=== PATIENT | male | born 1955 | race African-American/Black ===

== ENCOUNTER 2023-09-12 12:35 | Inpatient (IN) | payer MEDICARE, OTHER, SELFPAY ==
[2023-09-12] VITALS (29 sets, daily range): BP systolic 70–110; BP diastolic 51–79; PULSE 110; O2SAT 98
--- NOTE | 2023-09-12 09:42 | EDRN ---
lsat BP 70/55 (62), provider notified, this RN noticed that the pts Sp02 dipped to 88%, this RN placed the pt on 2L NC, Sp02 came up to 94%, provider notified
[2023-09-12 09:43] LABS: Mean Corp Hgb Conc. 34.1 g/dL (33.0-37.0); Mean Corpuscular Hgb 31.1 pg (27.0-31.0); Mean Corpuscular Volume 91.1 fL (80.0-94.0); Mean Platelet Volume 11.3 fL (7.4-10.4); Platelet Count 311 10^3/uL (130-400); Red Blood Cell Count 4.83 10^6/uL (4.70-6.10); Red Cell Dist. Width 15.6 % (11.5-14.5); White Blood Cell Count 9.1 10^3/uL (4.8-10.8)
[2023-09-12 09:55] LABS: COVID-19 Antigen Negative (Negative)
[2023-09-12 10:06] LABS: ALT (SGPT) 61 U/L (0-50); AST (SGOT) 129 U/L (17-59); Albumin 2.2 g/dl (3.5-5.0); Alkaline Phosphatase 64 U/L (38-126); Blood Urea Nitrogen 67 mg/dl (9-20); Calcium 5.8 mg/dl (8.4-10.2); Carbon Dioxide 17 mmol/L (22-30); Chloride 107 mmol/L (98-107); Estimated Creatinine Clearance 13 ml/min; Glucose 111 mg/dl (70-99); Potassium 2.8 mmol/L (3.5-5.1); Sodium 144 mmol/L (135-145); Total Bilirubin 0.6 mg/dl (0.2-1.3); eGFR 10.94
[2023-09-12 10:12] LABS: Urine Albumin Trace (Neg - Trace); Urine Bilirubin 1+ (Negative); Urine Character Clear (Clear); Urine Color Amber; Urine Glucose Negative (Negative); Urine Ketone Trace (Negative); Urine Leukocyte Trace (Negative); Urine Nitrite Positive (Negative); Urine Occult Blood Negative (Negative); Urine Urobilinogen 2+ (Neg - 1+)
[2023-09-12 10:14] LABS: Lactic Acid 5.1 mmol/L (0.7-2.0); Troponin I 0.261 ng/ml
[2023-09-12] MEDS: NSS 1500 IV (10:24)
--- NOTE | 2023-09-12 10:28 | ED.GENMED ---
History of Present Illness
General
Chief Complaint: Fainting/Passed Out
Source: patient, ambulance crew and halfway
Exam Limitations: none
Time Seen by Provider: 09/12/23 09:16
Nursing documentation reviewed up to this point in time: agreed with
Travel History
Have you had any contact with someone who has COVID-19?: No
Do you have any symptoms of coronavirus? Fever > 100 degrees, chills, cough, shortness of breath, sore throat, loss of taste or smell, muscle aches, or headache?: No
History of Present Illness
History of Present Illness:
68-year-old male with past medical history of hypertension hyperlipidemia dementia presenting to the emergency department today after he syncopized while on the toilet apparently staff was there with him and he did not sustain any significant
injury. He claims that he is been urinating normally and otherwise at this moment in time claims that he feels 'well'. He has no complaints at this time and denies any significant symptoms. He does claim that he has been urinating normally.
Past History
Past History
ED Past Medical History: GERD, HTN, Hypercholesterolemia and Psychiatric
ED Past Surgical History: None
Patient has exhibited threatening behavior?: No
PSI?: No
Social History
Tobacco: Former smoker
Alcohol: None
Drug: None
Living: halfway
Review of Systems
Review of Systems
Allergies reviewed?: Yes
All Other Systems: ROS reviewed and negative except as documented in HPI and ROS
Phy Exam
Physical Exam
Physical Exam:
GENERAL: Alert , in no apparent distress
EYE: pupils equal and reactive
NECK: Supple, no significant adenopathy.
ENT: o/p clr, mmm.
CARDIAC: Regular rate and rhythm .
LUNGS: Clear breath sounds bilaterally, no acute respiratory distress, no wheezes/rales/rhonchi
ABDOMEN: Soft, without focal tenderness, no r/g, no cvat
NEUROLOGICAL: Alert and oriented, no focal neuro deficits
SKIN: Warm and dry, skin intact.
MUSCULOSKELETAL: No edema, well perfused.
PSYCH: Answers questions with very short answers yes or no typically. Very flat affect
Course
Orders/Labs/Results
Orders:
Orders
09/12/23 09:15
Electrocardiogram (*1) Urgent
Reason for Study: Vertigo / Dizzy
09/12/23 09:16
EKG- Treatment ONCE
09/12/23 09:26
CT Head W/o Iv Contrast Urgent
Comment:
Reason For Exam: syncope
09/12/23 09:30
COVID-19 Antigen Urgent
Source: Nasal Swab
Complete Blood Count/With Diff Urgent
Comprehensive Metabolic Panel Urgent
Lactic Acid Urgent
Magnesium Urgent
Comment: ADD ON
Manual Differential Urgent
Troponin I Urgent
Influenza A+B Rapid Molecular Urgent
JORGE L Source: Nasal Swab
Specimen Description:
09/12/23 09:50
Urinalysis Reflex To Culture Urgent
Date Specimen was Collected: 09/12/23
Time Specimen was Collected: 09:47
Urine Microscopic Reflex Cult Urgent
Urine Culture Urgent
JORGE L Source: U
Specimen Description:
Date Specimen was Collected: 09/12/23
Time Specimen was Collected: 09:47
09/12/23 10:02
Blood Culture Urgent
JORGE L Source: Blood/Venous
Specimen Description:
09/12/23 10:20
Rosa Placement- Treatment ONCE
Reason for insertion: Acute Retention
09/12/23 10:22
0.9% Sodium Chloride 1000 ml [Nss] 1,500 ml IV BOLUS
09/12/23 10:48
Add On- LAB Urgent
Tests Added?: magnesium level
Calcium Gluconate 1 gram/100mL [Calcium Gluconate] 1 gram in 100 ml IV ONCE
Potassium Chloride [KCl] 20 meq PO NOW STA
09/12/23 10:54
CefTRIAXone [Rocephin] 2,000 mg IV NOW STA
09/12/23 12:30
Lactic Acid Urgent
Abnormal Lab Results
09/12/23 09/12/23
09:30 09:50
MCH 31.1 H pg
(27.0-31.0)
RDW 15.6 H %
(11.5-14.5)
MPV 11.3 H fL
(7.4-10.4)
Abs Neuts (Manual) 7.6 H 10^3/uL
(1.4-6.5)
Band Neutrophils 26 H %
(0-3)
Lymphocytes (Manual) 8 L %
(20-51)
Potassium 2.8 L mmol/L
(3.5-5.1)
Carbon Dioxide 17 L mmol/L
(22-30)
BUN 67 H mg/dl
(9-20)
Creatinine 5.3 H* mg/dL
(0.7-1.3)
Glucose 111 H mg/dl
(70-99)
Lactic Acid 5.1 H* mmol/L
(0.7-2.0)
Calcium 5.8 L* mg/dl
(8.4-10.2)
AST 129 H U/L
(17-59)
ALT 61 H U/L
(0-50)
Troponin I 0.261 H* ng/ml
Total Protein 5.0 L g/dl
(6.3-8.2)
Albumin 2.2 L g/dl
(3.5-5.0)
Urine Ketones Trace A
(Negative)
Urine Nitrite (Reflex) Positive A
(Negative)
Urine Bilirubin 1+ A
(Negative)
Urine Urobilinogen 2+ A
(Neg - 1+)
Leukocyte Esterase Rfl Trace A
(Negative)
Urine Bacteria (Reflex) Many A
(Negative)
09/12/23 09:30
09/12/23 09:30
Vital Signs
Initial and Last Documented VS:
Initial Vital Signs
Temp Pulse Resp BP Pulse Ox
98.5 F 115 16 75/52 96
09/12/23 09:16 09/12/23 09:16 09/12/23 09:16 09/12/23 09:16 09/12/23 09:16
Last Documented Vital Signs
Temp Pulse Resp BP Pulse Ox
98.5 F 101 16 101/51 97
09/12/23 09:16 09/12/23 11:15 09/12/23 09:16 09/12/23 11:15 09/12/23 11:04
MDM/Problems Addressed
MDM/Problems Addressed:
68-year-old male presenting to the emergency department after syncopal episode while in the toilet this morning at his nursing facility. Here initial blood pressure low in the 70s over 50s improving to the 90s over 70s after a liter of fluid.
Heart rate initially elevated but improving to normal rate. Labs showing creatinine level 5.3 which is new for the patient no previous renal failure. Potassium 2.8 calcium of 5.8 elevated lactic acid of 5.1. Troponin mildly elevated more likely
to be consistent with the renal dysfunction. Patient was unable to urinate here was given a Rosa catheter. Does have a previous history of urinary retention. CT scan negative urinalysis potentially consistent with UTI started on antibiotic.
Blood pressure and heart rate improving throughout ER stay after receiving fluids. Was given supplemental calcium and potassium.
*Critical Care Note
Total Time (30-74mins, 75-104mins- exclusive of procedures): Not Applicable
ED Attending Note
-
Portions of this chart may have been created with voice recognition software.� Occasional wrong word or��sound alike� substitutions may have occurred due to the inherent limitations of voice recognition software.
Discharge Plan
Departure
Patient Disposition: Admit
Date of Disposition: 09/12/23
Time of Disposition: 11:38
Admit to: IMU
Admit to doctor: Noe
Presentation/result/management discussed w/ accepting MD/DO: Hospitalist
Patient with high blood pressure during this ER visit?: No
Condition: Good
Covid-19: Not Applicable
Discharge Problem:
Renal failure, Hypocalcemia, Acute hypokalemia, Elevated troponin
Prescriptions:
No Action
acetaminophen 325 mg Tablet
650 mg PO Q4HPRN PRN (Reason: mild pain/temp>101)
rosuvastatin 20 mg Tablet
20 mg PO HS
omeprazole 20 mg Tablet,Delayed Release (Dr/Ec)
20 mg PO DAILY
magnesium hydroxide [Milk of Magnesia] 400 mg/5 mL Suspension
30 ml PO HSPRN PRN (Reason: if no bm x 3 days)
fluvoxamine 100 mg Tablet
100 mg PO HS
bisacodyl [Dulcolax (bisacodyl)] 10 mg Suppository
10 mg W[place] DAILYPRN PRN (Reason: IF NO BM AFTER MOM)
ipratropium-albuterol 0.5 mg-3 mg(2.5 mg base)/3 mL Solution For Nebulization
3 ml inhalation R Q4HPRN PRN (Reason: wheezing) Qty: 0 0RF
acetaminophen 325 mg Tablet
650 mg PO Q4HPRN PRN (Reason: mild pain/VILLALOBOS/temp> 100.4F) Qty: 0 0RF
tamsulosin [Flomax] 0.4 mg capsule
0.4 mg PO DAILY
aripiprazole 5 mg tablet
5 mg PO DAILY
Referrals:
Khadar Lou DO [Family Provider] -
Interventions
Interventions:
*Risk Screen - Suicide Last Done: 09/12/23 09:16
*General Assessment Last Done: 09/12/23 09:16
*Neglect/Abuse Screening Last Done: 09/12/23 09:16
ED- Fall Risk Assessment Last Done: 09/12/23 09:16
*ED COVID-19 Vaccine History Last Done: 09/12/23 09:16
ED- Cardiac Assessment Last Done: 09/12/23 09:16
ED- Neurological Assessment Last Done: 09/12/23 09:16
[2023-09-12 10:50] LABS: Urine Amorphous Seen; Urine Mucus Many; Urine Squamous Cell 0-2 /LPF (Few)
[2023-09-12 10:51] LABS: Urine Red Blood Cell 0-2 /HPF (0-2)
[2023-09-12 10:52] LABS: Urine Bacteria Many (Negative)
[2023-09-12] MEDS: CALCIUM GLUCONATE 100 IV (11:08)
[2023-09-12] MEDS: KCL 20 MEQ PO (11:08)
[2023-09-12] MEDS: ROCEPHIN 2000 MG IV (11:08)
[2023-09-12 11:14] LABS: Nucleated Red Blood Cells % 0.3 % (-)
[2023-09-12 11:17] LABS: Absolute Neutrophils -Man Diff 7.6 10^3/uL (1.4-6.5); Band Neutrophils 26 % (0-3); Eosinophils 1 % (0-6); Lymphocytes 8 % (20-51); Magnesium 1.8 mg/dl (1.6-2.3); Monocytes 7 % (2-9); Segmented Neutrophils 58 % (42-75)
[2023-09-12 11:19] LABS: Anisocytosis Slight; Macrocytosis Slight; Normal RBC Morphology No; Platelets Checked YES
[2023-09-12 11:21] LABS: Poikilocytosis Slight; Tear Drop Red Blood Cells FEW
[2023-09-12 11:22] LABS: Total Cells Counted 100
--- NOTE | 2023-09-12 11:39 | CM ---
Addendum entered by Pita Ibrahim 09/12/23 11:59:
Patient states that he did not want CM to call patient sister and that he understands that he will return to SNF when medically appropriate.
Original Note:
Patient from LTC; [facility] CM called to admissions to request confirmation of patient status and update on functional assessment.
--- NOTE | 2023-09-12 12:38 | HPS.HSE ---
Family Physician
-
Family Physician: Khadar Lou
Chief Complaint
-
Reported passing out on the toilet at his facility
History of Present Illness
Patient is a 68-year-old male who is a very poor historian, in fact says yes to any and all questions asked. As documented by ED physician apparently he syncopized on the toilet. He did not sustain any injury. He has a history of bipolar disorder
who was on a significant amount of medication that was weaned off his last admission. He also has a history of urinary retention especially on anticholinergic medications. Workup in the emergency department found him to be in acute renal failure
with hypocalcemia and hypokalemia and patient is being admitted.
Medical History
Past Medical History
Past Medical History: Reports Other
Additional Past Medical History:
Essential hypertension
History of urinary retention due to anticholinergic medications
Bipolar disorder/schizoaffective disorder
History of dementia with behavioral disturbances
History of insomnia
Gastroesophageal reflux disease
Hyperlipidemia
Blindness
Previous history of toxic metabolic encephalopathy secondary to influenza A with recent hospitalization from August 24 August 29, 2023
History of right hand fracture from fall in July 2023
Past Surgical History: Reports Other
Additional Past Surgical History:
Unknown
Social History
Tobacco: Former Smoker (Per previous documentation)
Alcohol: None
Drug: None
Living: Long Term
Family History
Family History: Unable to Obtain
Allergies / Home Medications
Allergies reflects when Allergies were last updated in [facility].
Home Medications with original date entered in [facility]
Allergy/Medication List:
Allergies
Allergy/AdvReac Type Severity Reaction Status Date / Time
Penicillins Allergy Unknown Unknown Verified 08/24/23 09:14
aspirin Allergy Unknown Verified 08/24/23 09:14
haloperidol [From Haldol] Allergy Pharmacy Verified 08/24/23 14:07
to Review
Home Medications
acetaminophen 325 mg tablet 650 mg PO Q4HPRN PRN mild pain/temp>101 03/11/23
omeprazole 20 mg tablet,delayed release 20 mg PO DAILY Gastrointestinal Issue 03/11/23
rosuvastatin 20 mg tablet 20 mg PO HS High Cholesterol 03/11/23
magnesium hydroxide 400 mg/5 mL oral suspension (Milk of Magnesia) 30 ml PO HSPRN PRN if no bm x 3 days 05/06/23
bisacodyl 10 mg rectal suppository (Dulcolax (bisacodyl)) 10 mg MT DAILYPRN PRN IF NO BM AFTER MOM 08/24/23
fluvoxamine 100 mg tablet 100 mg PO HS bipolar disorder 08/24/23
acetaminophen 325 mg tablet 650 mg PO Q4HPRN PRN mild pain/VILLALOBOS/temp> 100.4F #0 tabs 08/29/23
ipratropium 0.5 mg-albuterol 3 mg (2.5 mg base)/3 mL nebulization soln 3 ml inhalation R Q4HPRN PRN wheezing #0 mL 08/29/23
aripiprazole 5 mg tablet 5 mg PO DAILY bipolar disorder 09/12/23
tamsulosin 0.4 mg capsule (Flomax) 0.4 mg PO DAILY Urinary Issue 09/12/23
Review of Systems
-
Unable to obtain full review of systems at this time due to: Dementia (Patient answers yes to any and all questions asked)
Physical Exam
Vital Signs
Vital Signs
Temp Pulse Resp BP Pulse Ox
98.5 F 101 16 101/51 97
09/12/23 09:16 09/12/23 11:15 09/12/23 09:16 09/12/23 11:15 09/12/23 11:04
Physical Exam
General: Well Developed, No Apparent Distress and Appears Chronically Ill
HEENT: NormoCephalic, Anicteric and Oxygen
Respiratory: Clear; No Wheezes, Rales, Rhonchi or Crackles
Cardiac: S1/S2 and Regular Rhythm; No Murmur
GI: Soft, Non Tender, Non Distended and Normal Bowel Sounds
Genito-urinary: Rosa (Placed on admission)
Musculoskeletal: No Clubbing, No Cyanosis and No Edema
Skin: Warm
Neuro: Awake and Alert
Psych: Calm
Laboratory Results
-
09/12/23:
09/12/23
Laboratory Results
Lactic Acid 5.1 mmol/L (0.7-2.0) H* 09/12/23
Total Bilirubin 0.6 mg/dl (0.2-1.3) 09/12/23
AST 129 U/L (17-59) H 09/12/23
ALT 61 U/L (0-50) H 09/12/23
Alkaline Phosphatase 64 U/L (38-126) 09/12/23
Troponin I 0.261 ng/ml H* 09/12/23:30
Impression/Plan
-
Patient is a 68-year-old male
Syncope--unclear cause however, may be due to the acute kidney injury and/or urinary tract infection--ADMIT--continue IV fluids--consult PT/OT
Acute kidney injury with lactic acidosis--possibly due to urinary retention--consult nephrology--Rosa catheter placed, patient had approximately 400 to 500 mL in bladder with residual of 250 mL noted after 125 mL of voluntary voiding--continue IV
fluids--ADMIT--hold nephrotoxic medications--trend lactates--urinalysis appears to be positive, sent for culture--will start antibiotics while waiting
Hypocalcemia/hypokalemia--replete as needed, follow
Troponin elevation--likely not myocardial infarction elevation--trend
Bipolar disorder with history of schizoaffective disorder and dementia with behavioral disturbances--patient was seen in consultation by psychiatry last admission--currently he is calm and cooperative--continue aripiprazole and fluoxetine as
able--consideration for repeat psychiatry evaluation if needed
History of urinary retention--continue Flomax, Rosa catheter as above
Essential hypertension--does not appear to be on any blood pressure medications
Hyperlipidemia--continue Crestor
DVT prophylaxis--subcu heparin
CODE STATUS--full code
[2023-09-12] MEDS: KCL 270 MEQ IV (12:46)
[2023-09-12 13:07] LABS: Lactic Acid 1.8 mmol/L (0.7-2.0)
--- NOTE | 2023-09-12 13:35 | CON.MD ---
Consultation - Medical
-
IMP:
Syncope
Hypotension
Acute kidney injury
A gap met acidosis
lactic acidosis
Hypocalcemia
hypokalemia
Troponin elevation--likely not myocardial infarction elevation
Bipolar disorder with history of schizoaffective disorder
Dementia with behavioral disturbances
History of urinary retention-- Flomax
Essential hypertension not on meds
Hyperlipidemia
Hypoalbuminemia
elevated LFTs
Blindness
PLan:
A/w syncope found hypotensive and ADRIAN
ADRIAN -possible prerenal, h/o U retention but not much urine from harvey
UA relatively bland, check Fena , renal US
BP are now improving with IVF -start isotonic fluids
if met acidosis worsens change to bicarb
severe hypokalemia-not seem to be on diuretics
cont replace as needed, follow level later
L acidosis seem type A-improved now
hypocalcemia-s/p IV rider,corrected c7.2 check I samy later today
check vit D and pTH level
labs later today
[id number]
[2023-09-12] MEDS: NSS 1000 IV (17:01)
[2023-09-12 18:22] LABS: Blood Urea Nitrogen 91 mg/dl (9-20); Carbon Dioxide 20 mmol/L (22-30); Chloride 100 mmol/L (98-107); Glucose 124 mg/dl (70-99); Sodium 139 mmol/L (135-145)
[2023-09-12 18:36] LABS: Estimated Creatinine Clearance 9 ml/min
[2023-09-12 21:29] LABS: Urine Albumin 1+ (Neg - Trace); Urine Bilirubin 1+ (Negative); Urine Character Clear (Clear); Urine Color Amber; Urine Glucose Negative (Negative); Urine Ketone Trace (Negative); Urine Leukocyte Trace (Negative); Urine Nitrite Positive (Negative); Urine Occult Blood 1+ (Negative); Urine Specific Gravity 1.025 (<1.030); Urine Urobilinogen 1+ (Neg - 1+)
[2023-09-12 21:38] LABS: Urine Squamous Cell 0-2 /LPF (Few)
[2023-09-12 21:39] LABS: Urine Bacteria Moderate (Negative)
[2023-09-12] MEDS: ZOFRAN 4 MG IV (21:50)
[2023-09-12] MEDS: HEPARIN 5000 UNITS SC (21:50)
[2023-09-12 21:54] LABS: Urine Protein 159 mg/dl
[2023-09-12] MEDS: LUVOX 100 MG PO (21:55)
[2023-09-12] MEDS: CRESTOR 10 MG PO (21:55)
[2023-09-12 22:41] LABS: Protein/creatinine Ratio 0.5; Urine Sodium 36 mmol/L (30-90)
[2023-09-13] MEDS: NSS 1000 IV (02:36)
[2023-09-13 03:55] VITALS: BP 105/67
[2023-09-13 05:31] LABS: Ionized Calcium 0.84 mMOL/L (1.15-1.33)
[2023-09-13] MEDS: MILK OF MAGNESIA 30 ML PO (05:31)
[2023-09-13] MEDS: FLOMAX 0.400000000000000022 MG PO ×2 (05:31→12:55)
--- NOTE | 2023-09-13 05:39 | PTCARENOTE ---
Pt w/ low urine output in harvey and abd distended. Pt bladder scanned for >250. Catheter balloon deflated, harvey advanced w/ no urine output noted. Balloon reinflated. Pt w/ no c/o pain. HOSPITALITY RECRUITER Catalino notified, harvey irrigation ordered. Harvey
irrigated w/ 100mls of sterile saline. 50 mls of cloudy yellow urine out. some resistance w/ irrigation. Pt irrigated again w/ 100mls. Able to get out 100mls that were instilled, no urine present in syringe. HOSPITALITY RECRUITER notified pt still w/ 250 mls in
bladder. HOSPITALITY RECRUITER instructed to replace harvey. 16f harvey placed w/ small flash of urine. Able to inflate the balloon w/o c/o pain from pt. HOSPITALITY RECRUITER notified, instructed to irrigate. Irrigated harvey w/ 100mls, resistance w/ irrigation. Only able to get out
50mls. HOSPITALITY RECRUITER notified about resistance w/ irrigation. HOSPITALITY RECRUITER stated nephro was notified. HOSPITALITY RECRUITER up to see pt. Instructed to give Flomax 0.4mg early and to give PRN milk of mag. Abdomen distended, +BS, pt w/ no c/o pain. Will continue plan of care.
[2023-09-13 05:43] LABS: Hematocrit 37.9 % (39.0-52.0); Hemoglobin 13.6 g/dL (13.0-18.0); Mean Corp Hgb Conc. 35.9 g/dL (33.0-37.0); Mean Corpuscular Hgb 31.3 pg (27.0-31.0); Mean Corpuscular Volume 87.1 fL (80.0-94.0); Mean Platelet Volume 11.6 fL (7.4-10.4); Platelet Count 260 10^3/uL (130-400); Red Blood Cell Count 4.35 10^6/uL (4.70-6.10); Red Cell Dist. Width 15.2 % (11.5-14.5); White Blood Cell Count 3.7 10^3/uL (4.8-10.8)
[2023-09-13 05:51] LABS: ALT (SGPT) 289 U/L (0-50); Albumin 3.1 g/dl (3.5-5.0); Alkaline Phosphatase 114 U/L (38-126); Blood Urea Nitrogen 105 mg/dl (9-20); Calcium 7.6 mg/dl (8.4-10.2); Carbon Dioxide 18 mmol/L (22-30); Chloride 100 mmol/L (98-107); Glucose 91 mg/dl (70-99); Magnesium 2.3 mg/dl (1.6-2.3); Potassium 5.4 mmol/L (3.5-5.1); Sodium 137 mmol/L (135-145); Total Bilirubin 0.8 mg/dl (0.2-1.3); Total Protein 6.5 g/dl (6.3-8.2)
[2023-09-13 05:56] LABS: AST (SGOT) 768 U/L (17-59); Estimated Creatinine Clearance 8 ml/min; eGFR 6.58
[2023-09-13 06:00] VITALS: BMI 20.2
[2023-09-13 06:21] LABS: Vitamin D, 25-OH*** < 12.8 ng/mL (30-80)
--- NOTE | 2023-09-13 06:21 | W.PN.UPDATE ---
Update Note
Progress Note Update
Patient was seen as RN notified this [employer] MERCHANDISER of no urinary output, Bladder scan 250 CC. Abdomen noted to be distended, mildly firm at the time, non tender, + BS 4qadrant. unsure when was patients last BM. RN states patient was not distended in the early
shift. Patient states the same, denies any pain or discomfort. IV fluids in place. Advised RN to give MOM, also to give Flomax AM. AST ALT elevated at this time. will order US Abdomen.
[2023-09-13] MEDS: FLOMAX PO (06:36)
[2023-09-13 08:19] VITALS: BP 113/69
--- NOTE | 2023-09-13 09:43 | W.PN.NEPH.PH ---
Today's Communication / Plan
-
see plan
Assessment/Plan
-
IMP:
Syncope
Hypotension
Acute kidney injury
A gap met acidosis
lactic acidosis
Hypocalcemia
hypokalemia
Troponin elevation--likely not myocardial infarction elevation
Bipolar disorder with history of schizoaffective disorder
Dementia with behavioral disturbances
History of urinary retention-- Flomax
Essential hypertension not on meds
Hyperlipidemia
Hypoalbuminemia
elevated LFTs
Blindness
PLan:
A/w syncope found hypotensive and ADRIAN
ADRIAN - h/o U retention but not much urine from harvey
UA microhematuria-harvey sample, U na low highly suspect ATN, pending renal US
cr cont to rise 8.1 with minimal UOP
mild hyperkalemia -will give Lokelma
BP are stable with IVF -lower rate and change to bicarb IVF for met acidosis
cont to hold diuretics
hypocalcemia better, vit D def -start ergo
LFTs are increasing as well
spoke to the pt refused HD and knows the lethality of no NETWORK SUPPORT ADMINISTRATOR
spoke with sister Melissa on phone in detail and explained to her that with his underlying mood disorder we might encounter problem in dialysis
Also placement will be big issues being blind, schizoaffective disorder, he is no longer independant at this time
she will come and discuss with pt
d/w nursing
-
-
Date of Service: September 13, 2023
CC / HPI / ROS
-
Chief Complaint:
ADRIAN
History of Present Illness:
cr up at 8.1, bicarb 18, k high 5.4
BP sable, no fever
LFTs increasing
Review of Systems:
no UOP in harvey
no cp or sob
Labs
-
Labs:
eGFR 6.58 09/13/23 05:13
eGFR Cancelled 09/13/23 05:13
Albumin 3.1 g/dl (3.5-5.0) L 09/13/23 05:13
Albumin Cancelled 09/13/23 05:13
Physical Exam
-
Vital Signs:
Vital Signs
Temp Pulse Resp BP Pulse Ox
98.4 F 114 19 113/69 96
09/13/23 08:19 09/13/23 08:19 09/13/23 08:19 09/13/23 08:19 09/13/23 08:19
Cardiovascular:: Regular rate and rhythm
Respiratory:: Bilateral: CTA
Lung Excursion:: Normal
Abdomen:: Distended, Nontender and Soft
Extremity Edema:: None: Bilateral:
Harvey Catheter: Yes
[2023-09-13 11:18] VITALS: BP 102/64
[2023-09-13 11:33] LABS: Hematocrit 36.5 % (39.0-52.0); Hemoglobin 12.9 g/dL (13.0-18.0); Mean Corp Hgb Conc. 35.3 g/dL (33.0-37.0); Mean Corpuscular Volume 87.7 fL (80.0-94.0); Mean Platelet Volume 11.4 fL (7.4-10.4); Platelet Count 263 10^3/uL (130-400); Red Blood Cell Count 4.16 10^6/uL (4.70-6.10); Red Cell Dist. Width 15.8 % (11.5-14.5); White Blood Cell Count 4.5 10^3/uL (4.8-10.8)
--- NOTE | 2023-09-13 11:36 | CM ---
Addendum entered by Pita Ibrahim 09/13/23 15:53:
vm left for patient sister requesting call back to review discharge options.
Original Note:
Patient seen at bedside with physician. CM plan to call patient sister with physician to review options. Patient is LTC at [facility]. CM will continue to follow for discharge planning needs.
Plan; return to SNF
[2023-09-13 11:53] LABS: Blood Urea Nitrogen 114 mg/dl (9-20); Calcium 7.5 mg/dl (8.4-10.2); Carbon Dioxide 15 mmol/L (22-30); Chloride 98 mmol/L (98-107); Glucose 85 mg/dl (70-99); Potassium 5.2 mmol/L (3.5-5.1); Sodium 137 mmol/L (135-145)
--- NOTE | 2023-09-13 12:15 | W.PN.HOSP.TC ---
Today's Communication/Plan
-
await final decisions re: HD
Assessment / Plan
Assessment / Plan
pt is a 68 year old male
Syncope--unclear cause however, may be due to the acute kidney injury and/or urinary tract infection ( pt now with fever)--continue IV fluids--PT/OT
Acute kidney injury (with lactic acidosis resolved)--creat worsening possibly due to urinary retention--apprec nephrology--Rosa catheter placed, patient had approximately 400 to 500 mL in bladder with residual of 250 mL noted after 125 mL of
voluntary voiding--continue IV fluids--hold nephrotoxic medications---urinalysis appears to be positive, sent for culture--will start antibiotics while waiting--agree with renal, pt not candidate for HD, will need to discuss with family and would
pursue hospice/palliative care
Hypocalcemia/hypokalemia--replete as needed, follow
Troponin elevation--likely not myocardial infarction elevation--trend
Bipolar disorder with history of schizoaffective disorder and dementia with behavioral disturbances--patient was seen in consultation by psychiatry last admission--currently he is calm and cooperative--continue aripiprazole and fluoxetine as
able--consideration for repeat psychiatry evaluation if needed
History of urinary retention--continue Flomax, Rosa catheter as above
Essential hypertension--does not appear to be on any blood pressure medications
Hyperlipidemia--continue Crestor
DVT prophylaxis--subcu heparin
CODE STATUS--full code
Anticipated Discharge: 24 - 48 hours
Subjective/Interval History
-
Date of Service: September 13, 2023
pt today answering no to all questions
Objective Data
-
Labs:
Laboratory Results
09/13/23 09/13/23 09/13/23
05:13 05:13 05:13
WBC 3.7 L
Hgb 13.6
Hct 37.9 L
Plt Count 260
Sodium Cancelled 137
Potassium Cancelled 5.4 H
Chloride Cancelled
Carbon Dioxide
BUN
Creatinine
Glucose
Calcium
Total Bilirubin
AST
ALT
Alkaline Phosphatase
09/13/23 09/13/23 09/13/23
05:13 05:13 05:13
WBC
Hgb
Hct
Plt Count
Sodium
Potassium
Chloride 100
Carbon Dioxide Cancelled 18 L
BUN Cancelled 105 H*
Creatinine Cancelled
Glucose
Calcium
Total Bilirubin
AST
ALT
Alkaline Phosphatase
09/13/23 09/13/23 09/13/23
05:13 05:13 05:13
WBC
Hgb
Hct
Plt Count
Sodium
Potassium
Chloride
Carbon Dioxide
BUN
Creatinine 8.1 H*
Glucose Cancelled 91
Calcium Cancelled 7.6 L
Total Bilirubin Cancelled
AST
ALT
Alkaline Phosphatase
09/13/23 09/13/23 09/13/23
05:13 05:13 05:13
WBC
Hgb
Hct
Plt Count
Sodium
Potassium
Chloride
Carbon Dioxide
BUN
Creatinine
Glucose
Calcium
Total Bilirubin 0.8
AST Cancelled 768 H*
ALT Cancelled 289 H
Alkaline Phosphatase Cancelled
09/13/23 09/13/23
05:13 11:04
WBC 4.5 L
Hgb 12.9 L
Hct 36.5 L
Plt Count 263
Sodium 137
Potassium 5.2 H
Chloride 98
Carbon Dioxide 15 L
BUN 114 H*
Creatinine Pending
Glucose 85
Calcium 7.5 L
Total Bilirubin
AST
ALT
Alkaline Phosphatase 114
Vital Signs:
max temp for 24 hours
09/13/23
11:18
Temp 101.3 F H
Vital Signs
Temp Pulse Resp BP Pulse Ox
101.3 F H 114 20 102/64 94
09/13/23 11:18 09/13/23 11:18 09/13/23 11:18 09/13/23 11:18 09/13/23 11:18
I&O
09/12/23 09/13/23 09/14/23
06:59 06:59 06:59
Intake Total 480 / 480
Output Total 160 / 160
Balance 320 / 320
Review of Systems
-
Unable to obtain full review of systems at this time due to: Dementia
Physical Exam
-
General: Appears Chronically Ill
HEENT: Normocephalic and Other (blind)
Respiratory: Clear to Auscultation; Negative Wheezes or Rhonchi
Cardiac: Regular Rhythm and S1/S2; Negative Murmur
GI: Soft, Nontender, Nondistended and Normal Bowel Sounds
Musculoskeletal: No Clubbing, No Cyanosis and No Edema
Neuro: Awake; Negative Alert
[2023-09-13 12:27] LABS: Estimated Creatinine Clearance 8 ml/min; eGFR 6.04
[2023-09-13] MEDS: SODIUM BICARBONATE 1075 MEQ IV (12:45)
[2023-09-13] MEDS: STERILE WATER FOR INJECTION 10 ML IV (12:47)
[2023-09-13] MEDS: ROCEPHIN 1000 MG IV (12:47)
[2023-09-13] MEDS: HEPARIN 5000 UNITS SC ×2 (12:48→20:08)
[2023-09-13] MEDS: TYLENOL 650 MG PO (12:48)
[2023-09-13] MEDS: LOKELMA 10 GRAM PO (12:53)
[2023-09-13] MEDS: OSCAL CAL 500 500 MG PO ×2 (12:54→20:09)
[2023-09-13] MEDS: ABILIFY 5 MG PO (12:54)
[2023-09-13] MEDS: PROTONIX 40 MG PO (12:54)
[2023-09-13] MEDS: DRISDOL (VITAMIN D2) 50000 UNITS PO (13:05)
--- NOTE | 2023-09-13 15:42 | W.PN.UPDATE ---
Update Note
Progress Note Update
Reviewed with pt again with worsening renal function
he refuses HD but reportedly sister DAVID wants and made pt agreeable earlier but he is refusing now
he refused to eat today and not answering any more when asked about HD catheter
with this behavior issues we can not safely dialyze him and high risk of pulling lines
called and left for call back on sisters phone
change IVF to d5 bicarb
d/w primary
[2023-09-13 15:53] VITALS: BP 104/70
--- NOTE | 2023-09-13 16:16 | PTCARENOTE ---
Patient refusing to eat-family and physician made aware. Patient only wants ice water. Patient will take medications. Rosa draining <100ml of dark urine.
[2023-09-13] MEDS: SODIUM BICARBONATE 1150 MEQ IV (17:23)
[2023-09-13 19:45] VITALS: BP 108/69
[2023-09-13] MEDS: CRESTOR 10 MG PO (21:06)
[2023-09-13] MEDS: LUVOX 100 MG PO (21:08)
[2023-09-13 23:26] VITALS: BP 113/76
[2023-09-14 03:07] VITALS: BP 121/77
[2023-09-14 06:00] VITALS: BMI 20.1
[2023-09-14 06:02] LABS: Hematocrit 37.5 % (39.0-52.0); Mean Corp Hgb Conc. 34.7 g/dL (33.0-37.0); Mean Corpuscular Hgb 30.3 pg (27.0-31.0); Mean Corpuscular Volume 87.4 fL (80.0-94.0); Mean Platelet Volume 11.8 fL (7.4-10.4); Platelet Count 219 10^3/uL (130-400); Red Blood Cell Count 4.29 10^6/uL (4.70-6.10); Red Cell Dist. Width 15.3 % (11.5-14.5); White Blood Cell Count 5.6 10^3/uL (4.8-10.8)
[2023-09-14 06:45] LABS: Blood Urea Nitrogen 131 mg/dl (9-20); Calcium 7.1 mg/dl (8.4-10.2); Carbon Dioxide 20 mmol/L (22-30); Chloride 92 mmol/L (98-107); Glucose 74 mg/dl (70-99); Magnesium 2.4 mg/dl (1.6-2.3); Potassium 4.6 mmol/L (3.5-5.1); Sodium 138 mmol/L (135-145)
[2023-09-14 07:01] LABS: Estimated Creatinine Clearance 7 ml/min
[2023-09-14 07:41] VITALS: BP 127/74
[2023-09-14] MEDS: PROTONIX 40 MG PO (07:48)
[2023-09-14] MEDS: HEPARIN 5000 UNITS SC ×2 (07:48→20:30)
[2023-09-14] MEDS: ABILIFY 5 MG PO (07:48)
[2023-09-14] MEDS: FLOMAX 0.400000000000000022 MG PO (07:48)
[2023-09-14] MEDS: OSCAL CAL 500 500 MG PO ×2 (07:48→20:30)
--- NOTE | 2023-09-14 10:23 | CM ---
Addendum entered by Pita Ibrahim 09/14/23 11:49:
Plan is for no HD, per Melissa, patient sister, who indicated that she wants to take it day by day and she spoke with hospitalist to review Code status. Patient sister indicated that she would like to take things day by day. Patient is from [facility]
and is LTC there. CM updated [facility] Admissions at [facility]. Pending further decisions with patient sister, plan is for discharge back to SNF. Patient sister Melissa states that she does have a POA. Patient sister asked for hospice consult to learn more
about process. CM will continue to follow for discharge planning needs.
Original Note:
Patient seen at bedside with patient sister. Patient sister meeting with Dr. Martinez, and per physician, no plan for HD. CM will continue to follow for discharge planning needs.
Plan; return to SNF when medically appropriate
--- NOTE | 2023-09-14 10:23 | W.PN.NEPH.PH ---
Today's Communication / Plan
-
follow BMP
Assessment/Plan
-
IMP:
Syncope
Hypotension
Acute kidney injury
A gap met acidosis
lactic acidosis
Hypocalcemia
hypokalemia
Troponin elevation--likely not myocardial infarction elevation
Bipolar disorder with history of schizoaffective disorder
Dementia with behavioral disturbances
History of urinary retention-- Flomax
Essential hypertension not on meds
Hyperlipidemia
Hypoalbuminemia
elevated LFTs
Blindness
PLan:
-long discussion with daughter, Melissa who is POA.
-she has decided on no dialysis. She understands that his behavior issues could seriously complicate dialysis and that QoL would suffer.
-we discussed that it is possible he may recover function if insult was indeed hypotension, which has resolved.
-follow BMP
-she understands that hospice is also an option
-
-
Date of Service: September 14, 2023
CC / HPI / ROS
-
Chief Complaint:
ADRIAN
History of Present Illness:
cr up at 9.4
BP sable, no fever
abdominal distention
Review of Systems:
oliguric
no cp or sob
Labs
-
Labs:
WBC 5.6 10^3/uL (4.8-10.8) 09/14/23 05:22
RBC 4.29 10^6/uL (4.70-6.10) L 09/14/23 05:22
Hgb 13.0 g/dL (13.0-18.0) 09/14/23 05:22
Hct 37.5 % (39.0-52.0) L 09/14/23 05:22
Plt Count 219 10^3/uL (130-400) 09/14/23 05:22
Sodium 138 mmol/L (135-145) 09/14/23 05:22
Potassium 4.6 mmol/L (3.5-5.1) 09/14/23 05:22
Chloride 92 mmol/L (98-107) L 09/14/23 05:22
Carbon Dioxide 20 mmol/L (22-30) L 09/14/23 05:22
BUN 131 mg/dl (9-20) H* 09/14/23 05:22
Creatinine 9.4 mg/dL (0.7-1.3) H* 09/14/23 05:22
eGFR 5.50 09/14/23 05:22
Glucose 74 mg/dl (70-99) 09/14/23 05:22
Calcium 7.1 mg/dl (8.4-10.2) L 09/14/23 05:22
Albumin 3.1 g/dl (3.5-5.0) L 09/13/23 05:13
Albumin Cancelled 09/13/23 05:13
Physical Exam
-
Vital Signs:
Vital Signs
Temp Pulse Resp BP Pulse Ox
98.6 F 107 18 127/74 96
09/14/23 07:41 09/14/23 07:41 09/14/23 07:41 09/14/23 07:41 09/14/23 07:58
Cardiovascular:: Regular rate and rhythm
Respiratory:: Bilateral: Coarse
Lung Excursion:: Normal
Abdomen:: Distended, Nontender and Soft
Bowel Sounds:: Decreased
Extremity Edema:: None: Bilateral:
--- NOTE | 2023-09-14 11:03 | W.PN.HOSP.TC ---
Addendum entered and electronically signed by Leni Grullon MD 09/14/23 12:00:
Spoke at length with patient's sister, Sylwia, she is agreeable to make patient DO NOT RESUSCITATE/DO NOT INTUBATE given that we are not pursuing dialysis
Original Note:
Today's Communication/Plan
-
check abdominal x-ray
no HD
Assessment / Plan
Assessment / Plan
pt is a 68 year old male
Syncope--unclear cause however, may be due to the acute kidney injury and/or urinary tract infection ( pt now with fever)--continue IV fluids--PT/OT
Acute kidney injury (with lactic acidosis resolved)--creat worsening possibly due to urinary retention--apprec nephrology--Rosa catheter placed, patient had approximately 400 to 500 mL in bladder with residual of 250 mL noted after 125 mL of
voluntary voiding--continue IV fluids--hold nephrotoxic medications---urinalysis appears to be positive, sent for culture--will start antibiotics while waiting--agree with renal, pt not candidate for HD, family (sister, Sylwia POEmber) agrees with no HD
abdominal pain--distended on exam, tympanitic--check portable abdominal x-ray
Hypocalcemia/hypokalemia--replete as needed, follow
Troponin elevation--likely not myocardial infarction elevation--trend
Bipolar disorder with history of schizoaffective disorder and dementia with behavioral disturbances--patient was seen in consultation by psychiatry last admission--currently he is calm and cooperative--continue aripiprazole and fluoxetine as
able--consideration for repeat psychiatry evaluation if needed
History of urinary retention--continue Flomax, Rosa catheter as above
Essential hypertension--does not appear to be on any blood pressure medications
Hyperlipidemia--continue Crestor
DVT prophylaxis--subcu heparin
CODE STATUS--full code
will need to outline code status and hospice/comfort measures
Anticipated Discharge: 24 - 48 hours
Subjective/Interval History
-
Date of Service: September 14, 2023
pt c/o belly pain
Objective Data
-
Labs:
Laboratory Results
09/14/23
05:22
WBC 5.6
Hgb 13.0
Hct 37.5 L
Plt Count 219
Sodium 138
Potassium 4.6
Chloride 92 L
Carbon Dioxide 20 L
BUN 131 H*
Creatinine 9.4 H*
Glucose 74
Calcium 7.1 L
Vital Signs:
max temp for 24 hours
09/13/23
11:18
Temp 101.3 F H
Vital Signs
Temp Pulse Resp BP Pulse Ox
98.6 F 107 18 127/74 96
09/14/23 07:41 09/14/23 07:41 09/14/23 07:41 09/14/23 07:41 09/14/23 07:58
I&O
09/13/23 09/14/23 09/15/23
06:59 06:59 06:59
Intake Total 480 / 480 480 / 480
Output Total 160 / 160 100 / 100
Balance 320 / 320 380 / 380
Review of Systems
-
All other systems: Reviewed and negative
Physical Exam
-
General: Well Developed, Well Nourished and No Apparent Distress
HEENT: Normocephalic and Atraumatic
Respiratory: Clear to Auscultation; Negative Wheezes or Rhonchi
Cardiac: Regular Rhythm and S1/S2; Negative Murmur
GI: Soft, Nontender, Normal Bowel Sounds and Distended
Musculoskeletal: No Clubbing, No Cyanosis and No Edema
Neuro: Awake
Psych: Calm
[2023-09-14 11:33] VITALS: BP 124/68
[2023-09-14] MEDS: ROCEPHIN 1000 MG IV (11:41)
[2023-09-14] MEDS: SODIUM BICARBONATE 1150 MEQ IV (11:41)
[2023-09-14] MEDS: STERILE WATER FOR INJECTION 10 ML IV (11:41)
--- NOTE | 2023-09-14 12:55 | HOSPNOTE ---
Spoke with sister and gave her all the information about hospice and philosophy. Will call with any further questions.
--- NOTE | 2023-09-14 14:13 | PN.CDI ---
CDI
- -
CDI:
Physician Documentation Request
Admit Date: 09/12/23 12:35
Dear Doctor Mitchel,
H&P and hospitalist progress notes state 'urinalysis appears to be positive, sent for culture--will start antibiotics while waiting'
Urine cultures on 09/12 show no growth
Please clarify the following:
____ - UTI was/is present
____ - UTI was ruled out
____ - UTI is still a likely, suspected, probable diagnosis
____ - Other
Use of terms such as suspected, likely, concern for, or probable (associated with a specific diagnosis that is being evaluated, monitored, or treated as if it exists) are acceptable and can be coded in the inpatient setting, when documented at the
time of discharge.
Thank you,
Kim Barrera RN, BSN
CDI Specialist
tiger text
Please use your independent medical judgment in providing your response.
--- NOTE | 2023-09-14 14:19 | PN.CDI ---
CDI
- -
CDI:
Physician Documentation Request
Admit Date: 09/12/23 12:35
Dear Doctor Mitchel
Patient admitted with ADRIAN
H&P and progress notes state 'urinalysis appears to be positive, sent for culture--will start antibiotics while waiting'
09/13 tmax 101.3
09/13 wbc 3.7
09/13 HR 102-114
Recorded respiratory rates 16-20
Please clarify which most accurately describes the patient:
Sepsis
Systemic manifestations of infection, with 2 or more SIRS criteria which include:
Fever > 100.4 degrees F or hypothermia < 96.8 degrees F
Leukocytosis - WBC > 12,000 or leukopenia, WBC < 4,000 or > 10% bands
Tachycardia - > 90 beats per minute
Tachypnea - RR > 20 breaths per minute or PaCO2 < 32 mmHg
Source: Merck Manual 2013
Indicate the known or suspected organism
Indicate the known or suspected underlying infection, such as UTI, pneumonia or cellulitis
Indicate if a suspected bacterial infection of unknown source
Indicate if associated with an implanted device such as a F/C, PICC line, orthopedic hardware etc.
Indicate if there is associated organ dysfunction, such as renal or respiratory failure
SIRS due to a non-infectious source
Indicate the known or suspected etiology
Indicate if there is associated organ dysfunction, such as renal or respiratory failure
Other
Use of terms such as suspected, likely, concern for, or probable (associated with a specific diagnosis that is being evaluated, monitored, or treated as if it exists) are acceptable and can be coded in the inpatient setting, when documented at the
time of discharge.
Thank you,
Kim Barrera RN, BSN
CDI Specialist
tiger text
Please use your independent medical judgment in providing your response.
[2023-09-14 14:46] VITALS: BP 117/71; PULSE 103; O2SAT 95
[2023-09-14 15:38] VITALS: BP 122/65
[2023-09-14 19:17] VITALS: BP 111/74
[2023-09-14] MEDS: LUVOX 100 MG PO (20:30)
[2023-09-14] MEDS: CRESTOR 10 MG PO (20:30)
[2023-09-15 00:49] VITALS: BP 102/73
[2023-09-15 03:41] VITALS: BP 99/61
--- NOTE | 2023-09-15 05:21 | PTCARENOTE ---
Patient with multiple loose/mucoid yellow stools throughout shift -- also reported by dayshift that patient was having constant/multiple large stools. Harvey catheter maintained -- appeared that patient may have been incontinent urine. Harvey catheter
intact, no leaking around catheter tube, harvey is draining very small amounts of dark yellow/castillo urine. Will discuss with dayshift nurse so that MD can make decision if harvey catheter removal is appropriate. Will monitor.
[2023-09-15 06:00] VITALS: BMI 19.9
[2023-09-15 07:00] VITALS: BP 105/69
[2023-09-15 07:29] LABS: Hematocrit 36.2 % (39.0-52.0); Mean Corp Hgb Conc. 35.9 g/dL (33.0-37.0); Mean Corpuscular Hgb 30.7 pg (27.0-31.0); Mean Corpuscular Volume 85.4 fL (80.0-94.0); Mean Platelet Volume 11.6 fL (7.4-10.4); Platelet Count 215 10^3/uL (130-400); Red Blood Cell Count 4.24 10^6/uL (4.70-6.10); Red Cell Dist. Width 15.1 % (11.5-14.5); White Blood Cell Count 9.2 10^3/uL (4.8-10.8)
[2023-09-15] MEDS: OSCAL CAL 500 500 MG PO ×2 (08:21→20:38)
[2023-09-15] MEDS: PROTONIX 40 MG PO (08:21)
[2023-09-15] MEDS: FLOMAX 0.400000000000000022 MG PO (08:21)
[2023-09-15] MEDS: ABILIFY 5 MG PO (08:22)
[2023-09-15] MEDS: HEPARIN 5000 UNITS SC ×2 (08:22→20:38)
[2023-09-15 08:34] LABS: Calcium 6.9 mg/dl (8.4-10.2); Carbon Dioxide 16 mmol/L (22-30); Chloride 92 mmol/L (98-107); Glucose 40 mg/dl (70-99); Magnesium 2.6 mg/dl (1.6-2.3); Potassium 4.8 mmol/L (3.5-5.1); Sodium 134 mmol/L (135-145)
[2023-09-15 08:46] LABS: Blood Urea Nitrogen 140 mg/dl (9-20)
[2023-09-15 09:58] LABS: Glucose - Point of Care 45 mg/dl (70-99)
[2023-09-15 10:12] LABS: Glucose - Point of Care 48 mg/dl (70-99)
--- NOTE | 2023-09-15 10:13 | PTCARENOTE ---
x2 40z juices provided per hypoglycemic protocol. attending notified. no response. pharmacy contacted to add dextrose bryan. pt is awake, dowsy and slurred speech. difficult to assess symptomatic vs. baseline as pt does have baseline lethargy and
confusion
[2023-09-15] MEDS: GlucaGen 1 MG IM (10:19)
[2023-09-15 10:26] LABS: Glucose - Point of Care 65 mg/dl (70-99)
[2023-09-15 10:42] LABS: Glucose - Point of Care 58 mg/dl (70-99)
[2023-09-15] MEDS: DEXTROSE 50% SYRINGE 12.5 GRAMS IV (10:46)
[2023-09-15 11:00] VITALS: BP 95/62
[2023-09-15 11:06] LABS: Glucose - Point of Care 124 mg/dl (70-99)
[2023-09-15 11:11] LABS: Intact PTH 472.6 pg/ml (13.6-85.8)
[2023-09-15 11:24] LABS: Estimated Creatinine Clearance 7 ml/min; eGFR 4.99
--- NOTE | 2023-09-15 12:05 | W.PN.HOSP.TC ---
Today's Communication/Plan
-
Comfort measures
Assessment / Plan
Assessment / Plan
pt is a 68 year old male
Syncope--unclear cause however, may be due to the acute kidney injury .No evidence of UTI
Acute kidney injury (with lactic acidosis resolved)-?Etiology -creat worsening with worsening acidosis -- patient is anuric--nephrology discussions with POA/daughter noted-decisions were made for no hemodialysis. Patient creatinine significantly
worse with acidosis and also I feel he is encephalopathic from his azotemia. BUN noted.
Troponin elevation--likely not myocardial infarction elevation--trend
Bipolar disorder with history of schizoaffective disorder and dementia with behavioral disturbances--patient was seen in consultation by psychiatry last admission---continue aripiprazole and fluoxetine as able--
History of urinary retention--continue Flomax, Rosa catheter as above
Essential hypertension--does not appear to be on any blood pressure medications
Hyperlipidemia--continue Crestor
DVT prophylaxis--subcu heparin
CODE STATUS--patient now DNR
With no plan for hemodialysis and worsening renal failure with azotemia he probably should be is on comfort measures and hospice seems appropriate.
Will touch base with the family.
Anticipated Discharge: Within 24 hours
Subjective/Interval History
-
Date of Service: September 15, 2023
Patient does not open eyes; he keeps saying ' i am alrirght'
Doesnt follow commands
Objective Data
-
Labs:
Laboratory Results
09/15/23
07:21
WBC 9.2
Hgb 13.0
Hct 36.2 L
Plt Count 215
Sodium 134 L
Potassium 4.8
Chloride 92 L
Carbon Dioxide 16 L
BUN 140 H*
Creatinine 10.2 H*
Glucose 40 L*
Calcium 6.9 L*
Vital Signs:
Vital Signs
Temp Pulse Resp BP Pulse Ox
97.2 F 102 20 95/62 94
09/15/23 11:00 09/15/23 11:00 09/15/23 11:00 09/15/23 11:00 09/15/23 11:00
I&O
09/14/23 09/15/23 09/16/23
06:59 06:59 06:59
Intake Total 480 / 480 1610 / 1610
Output Total 100 / 100 125 / 125
Balance 380 / 380 1485 / 1485
Review of Systems
-
Unable to obtain full review of systems at this time due to: Other (Due to his mentation and cognitition issues)
Physical Exam
-
General: No Apparent Distress
Respiratory: Clear to Auscultation (anteriroly)
Cardiac: Regular Rhythm, S1/S2 and Tachycardic
GI: Soft
Neuro: Negative Awake or Alert
Psych: Calm
Data Reviewed
-
Labs: Labs Reviewed by me
[2023-09-15] MEDS: STERILE WATER FOR INJECTION IV (12:17)
[2023-09-15] MEDS: ROCEPHIN IV (12:17)
[2023-09-15 13:29] LABS: Glucose - Point of Care 90 mg/dl (70-99)
--- NOTE | 2023-09-15 13:50 | HOSPNOTE ---
Spoke to Dr. Beth. He asked to reach out to the family to further discuss hospice services. Patient is expected to pass quickly without the use of HD. Patient is stable to go back to [facility] and sign onto hospice at this time. I called and
spoke to sister Melissa. She stated that she was busy and asked to call SN back later today or tomorrow. Return phone number provided. She did deny any immediate questions regarding hospice during call. Dr. Beth updated.
--- NOTE | 2023-09-15 14:19 | W.PN.NEPH.PH ---
Today's Communication / Plan
-
appropriate for hospice
Assessment/Plan
-
IMP:
Syncope
Hypotension
Acute kidney injury
A gap met acidosis
lactic acidosis
Hypocalcemia
hypokalemia
Troponin elevation--likely not myocardial infarction elevation
Bipolar disorder with history of schizoaffective disorder
Dementia with behavioral disturbances
History of urinary retention-- Flomax
Essential hypertension not on meds
Hyperlipidemia
Hypoalbuminemia
elevated LFTs
Blindness
PLan:
-long discussion with daughter, Melissa who is POA 09/14
-she has decided on no dialysis. She understands that his behavior issues could seriously complicate dialysis and that QoL would suffer.
-he is appropriate for hospice at this point
-
-
Date of Service: September 15, 2023
CC / HPI / ROS
-
Chief Complaint:
ADRIAN
History of Present Illness:
cr up at 10
BP stable, no fever
noncummunicative
Review of Systems:
oliguric
no fever
Labs
-
Labs:
WBC 9.2 10^3/uL (4.8-10.8) 09/15/23 07:21
RBC 4.24 10^6/uL (4.70-6.10) L 09/15/23 07:21
Hgb 13.0 g/dL (13.0-18.0) 09/15/23 07:21
Hct 36.2 % (39.0-52.0) L 09/15/23 07:21
Plt Count 215 10^3/uL (130-400) 09/15/23 07:21
Sodium 134 mmol/L (135-145) L 09/15/23 07:21
Potassium 4.8 mmol/L (3.5-5.1) 09/15/23 07:21
Chloride 92 mmol/L (98-107) L 09/15/23 07:21
Carbon Dioxide 16 mmol/L (22-30) L 09/15/23 07:21
BUN 140 mg/dl (9-20) H* 09/15/23 07:21
Creatinine 10.2 mg/dL (0.7-1.3) H* 09/15/23 07:21
eGFR 4.99 09/15/23 07:21
Glucose 40 mg/dl (70-99) L* 09/15/23 07:21
Calcium 6.9 mg/dl (8.4-10.2) L* 09/15/23 07:21
Albumin 3.1 g/dl (3.5-5.0) L 09/13/23 05:13
Albumin Cancelled 09/13/23 05:13
Physical Exam
-
Vital Signs:
Vital Signs
Temp Pulse Resp BP Pulse Ox
97.2 F 102 20 95/62 94
09/15/23 11:00 09/15/23 11:00 09/15/23 11:00 09/15/23 11:00 09/15/23 11:00
Cardiovascular:: Regular rate and rhythm
Respiratory:: Bilateral: Coarse
Lung Excursion:: Normal
Abdomen:: Nontender and Soft
Bowel Sounds:: Normal
Extremity Edema:: None: Bilateral:
[2023-09-15 15:00] VITALS: BP 98/59
[2023-09-15 15:31] LABS: Glucose - Point of Care 92 mg/dl (70-99)
--- NOTE | 2023-09-15 15:34 | HOSPNOTE ---
Addendum: Sister Melissa called SN back. Discussed hospice and she is agreeable to hospice with Stefan at [facility]. She asked for Sunday as she will be coming from ID to visit patient tomorrow afternoon. Plan is to discharge to [facility]
on [facility] on Sunday 09/17. Attending made aware.
[2023-09-15] MEDS: CRESTOR 10 MG PO (20:38)
[2023-09-15] MEDS: LUVOX 100 MG PO (20:38)
[2023-09-15 23:53] VITALS: BP 94/60
[2023-09-16 03:15] LABS: Glucose - Point of Care 88 mg/dl (70-99)
[2023-09-16 03:22] LABS: ANA, IgG Reflex to HEp-2 None Detected (None Detected)
[2023-09-16 06:00] VITALS: BMI 19.3
[2023-09-16 07:00] VITALS: BP 113/74
[2023-09-16] MEDS: OSCAL CAL 500 500 MG PO (07:32)
[2023-09-16] MEDS: PROTONIX 40 MG PO (07:32)
[2023-09-16] MEDS: ABILIFY 5 MG PO (07:33)
[2023-09-16] MEDS: FLOMAX PO (07:33)
[2023-09-16] MEDS: HEPARIN 5000 UNITS SC (07:33)
--- NOTE | 2023-09-16 10:06 | CM ---
Addendum entered by Josefina Garcia 09/16/23 15:16:
Transport arraigned for 12:30PM
Facility and hospice aware
Original Note:
Contacted Monica at [facility]
Plan is for pt to return to [place] tomorrow with [facility]
Catie at [place] made aware
Plan - return to [place] tomorrow with [facility]
--- NOTE | 2023-09-16 11:02 | W.PN.HOSP.TC ---
Today's Communication/Plan
-
hospice at [facility] Sunday d/c ~noon
Assessment / Plan
Assessment / Plan
pt is a 68 year old male
Syncope--unclear cause however, may be due to the acute kidney injury-- UTI ruled out
SIRS due to Acute kidney injury (with lactic acidosis resolved)--creat worsening with worsening acidosis -- patient is anuric--nephrology discussions with POA/daughter noted--decisions were made for no hemodialysis. Patient creatinine
significantly worse with acidosis and also I feel he is encephalopathic from his azotemia. BUN noted.
Troponin elevation--likely not myocardial infarction elevation--trend
Bipolar disorder with history of schizoaffective disorder and dementia with behavioral disturbances--patient was seen in consultation by psychiatry last admission---continue aripiprazole and fluoxetine as able--
History of urinary retention--continue Flomax, Rosa catheter as above
Essential hypertension--does not appear to be on any blood pressure medications
Hyperlipidemia--continue Crestor
DVT prophylaxis--subcu heparin
CODE STATUS--patient now DNR
home ([facility]) with hospice Sunday anticipated noon
Anticipated Discharge: Within 24 hours
Subjective/Interval History
-
Date of Service: September 16, 2023
pt not responsive--not eating or drinking
Objective Data
-
Vital Signs:
max temp for 24 hours
09/15/23
23:53
Temp 98.2 F
Vital Signs
Temp Pulse Resp BP Pulse Ox
97.7 F 101 20 113/74 94
09/16/23 07:00 09/16/23 07:00 09/16/23 07:00 09/16/23 07:00 09/16/23 08:34
I&O
09/15/23 09/16/23 09/17/23
06:59 06:59 06:59
Intake Total 1610 / 1610 480 / 480
Output Total 125 / 125 25 / 25
Balance 1485 / 1485 455 / 455
Review of Systems
-
All other systems: Reviewed and negative
Physical Exam
-
General: No Apparent Distress
HEENT: Normocephalic and Atraumatic
Respiratory: Clear to Auscultation; Negative Wheezes or Rhonchi
Cardiac: Regular Rhythm and S1/S2; Negative Murmur
GI: Soft, Nontender, Nondistended, Normal Bowel Sounds and Other (sinificant diarrhea per nursing)
Musculoskeletal: No Clubbing, No Cyanosis and No Edema
--- NOTE | 2023-09-16 11:34 | HOSPNOTE ---
Plan for discharge tomorrow with transport set up for 12 pm. Left a message for sister Melissa to notify her of discharge time tomorrow back to [facility] with [facility]. Note- under medicare patients last name is GOKUL.
--- NOTE | 2023-09-16 13:02 | W.PN.NEPH.PH ---
Today's Communication / Plan
-
hospice
Assessment/Plan
-
IMP:
Syncope
Hypotension
Acute kidney injury
A gap met acidosis
lactic acidosis
Hypocalcemia
hypokalemia
Troponin elevation--likely not myocardial infarction elevation
Bipolar disorder with history of schizoaffective disorder
Dementia with behavioral disturbances
History of urinary retention-- Flomax
Essential hypertension not on meds
Hyperlipidemia
Hypoalbuminemia
elevated LFTs
Blindness
PLan:
-long discussion with daughter, Melissa who is POA on 09/14
-she has decided on no dialysis. She understands that his behavior issues could seriously complicate dialysis and that QoL would suffer.
-he is appropriate for hospice at this point
-dc planning
-
-
Date of Service: September 16, 2023
CC / HPI / ROS
-
Chief Complaint:
ADRIAN
History of Present Illness:
cr up at 10 yesterday
BP stable, no fever
noncommunicative
Review of Systems:
oliguric
no fever
Labs
-
Labs:
WBC 9.2 10^3/uL (4.8-10.8) 09/15/23 07:21
RBC 4.24 10^6/uL (4.70-6.10) L 09/15/23 07:21
Hgb 13.0 g/dL (13.0-18.0) 09/15/23 07:21
Hct 36.2 % (39.0-52.0) L 09/15/23 07:21
Plt Count 215 10^3/uL (130-400) 09/15/23 07:21
Sodium 134 mmol/L (135-145) L 09/15/23 07:21
Potassium 4.8 mmol/L (3.5-5.1) 09/15/23 07:21
Chloride 92 mmol/L (98-107) L 09/15/23 07:21
Carbon Dioxide 16 mmol/L (22-30) L 09/15/23 07:21
BUN 140 mg/dl (9-20) H* 09/15/23 07:21
Creatinine 10.2 mg/dL (0.7-1.3) H* 09/15/23 07:21
eGFR 4.99 09/15/23 07:21
Glucose 40 mg/dl (70-99) L* 09/15/23 07:21
Calcium 6.9 mg/dl (8.4-10.2) L* 09/15/23 07:21
Albumin 3.1 g/dl (3.5-5.0) L 09/13/23 05:13
Albumin Cancelled 09/13/23 05:13
Physical Exam
-
Vital Signs:
Vital Signs
Temp Pulse Resp BP Pulse Ox
97.7 F 101 20 113/74 94
09/16/23 07:00 09/16/23 07:00 09/16/23 07:00 09/16/23 07:00 09/16/23 08:34
Cardiovascular:: Regular rate and rhythm
Respiratory:: Bilateral: Coarse
Lung Excursion:: Normal
Abdomen:: Nontender and Soft
Bowel Sounds:: Normal
Extremity Edema:: None: Bilateral:
[2023-09-16] MEDS: NSS (PRESERVATIVE FREE) 0.25 ML IV (13:48)
[2023-09-16] MEDS: ATIVAN 0.5 MG IV (13:49)
[2023-09-16 15:00] VITALS: BP 93/63
[2023-09-16 16:04] LABS: Myeloperoxidase Antibody 0 AU/mL (0-19); Serine Protease-3, IgG 8 AU/mL (0-19)
[2023-09-16] MEDS: OSCAL CAL 500 PO (19:25)
[2023-09-16] MEDS: MORPHINE SULFATE 1 MG IV ×2 (20:04→21:55)
[2023-09-16] MEDS: HEPARIN SC (20:07)
[2023-09-16] MEDS: CRESTOR PO (21:50)
[2023-09-16] MEDS: LUVOX PO (21:51)
[2023-09-16 23:43] VITALS: BP 90/58
[2023-09-17] MEDS: MORPHINE SULFATE 1 MG IV ×3 (00:35→13:23)
--- NOTE | 2023-09-17 00:47 | PTCARENOTE ---
Patient needing IV Morphine for dyspnea, patient now with an increase in oral secretions. Patient unresponsive at this time, patient appears to be actively dying. JUDY Sanchez notified and an order for Rosa M SAAVEDRA entered electronically to
[facility]. Will continue to monitor symptoms closely.
[2023-09-17] MEDS: LEVSIN ORAL DROPS 0.125 MG SL (01:15)
[2023-09-17 01:47] LABS: Complement C3 151 mg/dl (88-165)
[2023-09-17 07:00] VITALS: BP 74/43
[2023-09-17] MEDS: ABILIFY PO (08:00)
[2023-09-17] MEDS: FLOMAX PO (08:00)
[2023-09-17] MEDS: OSCAL CAL 500 PO (08:00)
[2023-09-17] MEDS: PROTONIX PO (08:00)
[2023-09-17] MEDS: HEPARIN 5000 UNITS SC (08:01)
--- NOTE | 2023-09-17 11:56 | CM ---
CM reviewed pt with [facility]
Pt has declined
Will plan for GIP admission today
Medical Technologist Chemistry cancelled BLS transport
Update to [facility]
Discharge Disposition- GIP
--- NOTE | 2023-09-17 12:39 | HOSPNOTE ---
Spoke to floor RN and casemanagement. We cancelled patient returning to [facility] and the patient will remain inpatient hospice for pain management. Attending in agreement with plan. A hospice nurse will meet patient's sister here at the [facility] to sign consents.
--- NOTE | 2023-09-17 12:52 | W.PN.HOSP.TC ---
Today's Communication/Plan
-
DC
Assessment / Plan
Assessment / Plan
pt is a 68 year old male
Syncope--unclear cause however, may be due to the acute kidney injury-- UTI ruled out
SIRS due to Acute kidney injury (with lactic acidosis resolved)--creat worsening with worsening acidosis -- patient is anuric--nephrology discussions with POA/Sister Sylwia noted--decisions were made for no hemodialysis. Patient creatinine
significantly worse with acidosis and also I feel he is encephalopathic from his azotemia. BUN noted.
Troponin elevation--likely not myocardial infarction elevation--trend
Bipolar disorder with history of schizoaffective disorder and dementia with behavioral disturbances--patient was seen in consultation by psychiatry last admission---continue aripiprazole and fluoxetine as able--
History of urinary retention--continue Flomax, Rosa catheter as above
Essential hypertension--does not appear to be on any blood pressure medications
Hyperlipidemia--continue Crestor
DVT prophylaxis--subcu heparin
CODE STATUS--patient now DNR
Patient today is comatose suspect uremic coma. Sister/POEmber at bedside. She had discussions with hospice over the weekend and she thinks comfort should be the goal with organ failure. He is currently comatose, hypotensive and feel inpatient hospice
is appropriate.
Discussed with inpatient hospice nurse [facility].
DC to inpatient hospice.
Total time of discharge 35 minutes
Anticipated Discharge: Today
Subjective/Interval History
-
Date of Service: September 17, 2023
Unresponsive to me today
Objective Data
-
Vital Signs:
Vital Signs
Temp Pulse Resp BP Pulse Ox
98.8 F 87 18 74/43 95
09/17/23 07:00 09/17/23 07:00 09/17/23 07:00 09/17/23 07:00 09/17/23 09:10
I&O
09/16/23 09/17/23 09/18/23
06:59 06:59 06:59
Intake Total 480 / 480
Output Total
Balance 455 / 455 -
Review of Systems
-
Unable to obtain full review of systems at this time due to: Other
Physical Exam
-
General: Comfortable
Respiratory: Clear to Auscultation (anteriorly)
Cardiac: Regular Rhythm and S1/S2
GI: Soft
Neuro: Negative Awake, Alert or Oriented
Psych: Calm
--- NOTE | 2023-09-17 12:56 | W.DS.TRANS ---
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
-
Discharge Instructions:
Discharge Diagnosis/Procedures Syncope, SIRS due to acute kidney injury,
troponin elevation, bipolar disorder with
history of schizoaffective disorder and dementia
with behavioral disturbances, history of
urinary retention, essential hypertension,
hyperlipidemia
Diet As tolerated
Activity As tolerated
Driving Restrictions No driving
Bathing Restrictions None
Other Services Hospice
Instructions:
Stand-Alone Forms:
Changes to Home Medications: Yes
Discharge Medications:
Home Medication Changes
Transitioned into hospice
Pending Results: No
[2023-09-17] MEDS: NSS (PRESERVATIVE FREE) 0.25 ML IV (13:34)
[2023-09-17] MEDS: ATIVAN 0.5 MG IV (13:34)
--- NOTE | 2023-09-17 14:00 | HOSPNOTE ---
Patient was admitted into Hospice services. Met with the patients sister Melissa .After discussing Hospice services and care she did sign consents. Melissa understood was imminent however she did not want to be present to 'watch him '. She reports
she saw her father and was not prepared. During this visit the patient was repositioned . His respirations became moderately labored and he grimaced. Floor nurse gave Morphine and Ativan as requested. Patient did settle. She a short time
later. Dr Beth was notified. Patient without signs of agitation or pain. His sister Melissa was called by this nurse . Condolences given . She states she will call the home.
--- NOTE | 2023-09-17 14:45 | PTCARENOTE ---
1340 pt noted cessation of breathing, no audible apical pulse nor palpable femoral. hospice at bedside, attending notified.
== END 2023-09-17 13:40 | disposition hospice, inpatient (51) | DRG 682 ==
LOC: EICU 12:35
PROVIDERS: Nurse Practitioner Gerontology; Physician Assistant; Specialist; ADMITTING PHYSICIAN Internal Medicine; ATTENDING PHYSICIAN Internal Medicine; CONSULT PHYSICIAN Internal Medicine; EMERGENCY PHYSICIAN Emergency Medicine; FAMILY PHYSICIAN Internal Medicine
DX: N17.9 Acute kidney failure, unspecified (principal); R65.11 Systemic inflammatory response syndrome (SIRS) of non-infectious origin with acute organ dysfunction; E87.20 Acidosis, unspecified; F03.918 Unspecified dementia, unspecified severity, with other behavioral disturbance; I5A Non-ischemic myocardial injury (non-traumatic); G93.40 Encephalopathy, unspecified; R65.10 Systemic inflammatory response syndrome (SIRS) of non-infectious origin without acute organ dysfunction; R55 Syncope and collapse; I10 Essential (primary) hypertension; E78.00 Pure hypercholesterolemia, unspecified; K21.9 Gastro-esophageal reflux disease without esophagitis; E83.51 Hypocalcemia; Z51.5 Encounter for palliative care; I95.9 Hypotension, unspecified; E88.09 Other disorders of plasma-protein metabolism, not elsewhere classified; E87.6 Hypokalemia; N40.1 Benign prostatic hyperplasia with lower urinary tract symptoms; F31.9 Bipolar disorder, unspecified; R33.8 Other retention of urine; F25.9 Schizoaffective disorder, unspecified; G47.00 Insomnia, unspecified; H54.7 Unspecified visual loss; Z88.6 Allergy status to analgesic agent; Z88.0 Allergy status to penicillin; Z88.8 Allergy status to other drugs, medicaments and biological substances; Z87.891 Personal history of nicotine dependence; Z11.52 Encounter for screening for COVID-19; Z91.81 History of falling; Z66 Do not resuscitate
CPT/HCPCS: 51702; 51798; 70450; 74018; 76700; 80048; 80053; 81003; 81015; 82306; 82330; 82570; 82962; 83516; 83605; 83735; 83970; 84156; 84300; 84484; 85025; 85027; 86038; 86160; 87040; 87086; 87502; 87811; 93005; 96361; 96372; 96375; 97162; 97530; 99285; J1610; J7030

== ENCOUNTER 2023-09-17 13:00 | Inpatient (IN) | payer OTHER, SELFPAY ==
--- NOTE | 2023-09-17 15:35 | W.PN.UPDATE ---
Update Note
Progress Note Update
summary
Pt was admitted to inpatient hospice this afternoon.
Soon after admission to hospice he
No spontaneous breath sounds heard. No carotid pulse palpable. No heart sounds heard.
Pronounced by me at 1:40 PM
Rest in peace
--- NOTE | 2023-09-17 15:36 | W.DCSUMMARY ---
Discharge Summary
Discharge Data
Date of Admission: 09/17/23
Date of Discharge: 09/17/23
-
Pending Results: No
Hospital Course
This is a brief discharge summary.
68-year-old gentleman with a prior history of bipolar disorder presented initially to acute care hospital for acute progressive oliguric renal failure and was transition into hospice. He was transition to inpatient hospice because of the
progressive nature of ARF and impending demise. He peacefully today.
Discharge Plan
-
Referrals:
UNKNOWN,NO INTERVIEW [Family Provider] -
== END 2023-09-17 13:40 | disposition expired | DRG 951 ==
LOC: EICU 13:00
PROVIDERS: ADMITTING PHYSICIAN Internal Medicine
DX: Z51.5 Encounter for palliative care (principal); N17.9 Acute kidney failure, unspecified; F03.93 Unspecified dementia, unspecified severity, with mood disturbance; R65.10 Systemic inflammatory response syndrome (SIRS) of non-infectious origin without acute organ dysfunction; R34 Anuria and oliguria; F31.9 Bipolar disorder, unspecified; R33.8 Other retention of urine; R55 Syncope and collapse; I10 Essential (primary) hypertension; E78.5 Hyperlipidemia, unspecified; F25.9 Schizoaffective disorder, unspecified